=== PATIENT | male | born 1960 | race Caucasian/White ===

== ENCOUNTER 2017-04-02 09:09 | Emergency (ER) | payer BC, OTHER ==
[2017-04-02 09:51] VITALS: BP 135/91
--- NOTE | 2017-04-02 10:01 | EDM.PDOC ---
ED HPI GENERAL MEDICAL PROBLEM - General Chief Complaint: Lower Extremity Injury/Pain Stated Complaint: [id number] PULLED CALF MUSCLE AT WORK Time Seen by Provider: 04/02/17 09:59 Source of Information: Reports: Patient, RN Notes Reviewed - History of Present Illness INITIAL COMMENTS - FREE TEXT/NARRATIVE: PATIENT FELL forward at work over a box of tomatoes and felt a pull in his right calf. He was able to get up and walk. States it is a ripping pain. Worse with ambulation and better if sitting. denies striking his head or LOC Onset: Today Severity: Mild Right Posterior Leg Pain Score (Numeric/FACES): 8 - Related Data Allergies Allergy/AdvReac Type Severity Reaction Status Date / Time No Known Allergies Allergy Verified 04/02/17 09:35 Home Meds: Home Meds . [No Known Home Meds] 04/02/17 [History] Social & Family History - Tobacco Use Smoking Status *Q: Never Smoker Second Hand Smoke Exposure: No - Alcohol Use Days Per Week of Alcohol Use: 0 - Recreational Drug Use Recreational Drug Use: No Review of Systems - Review of Systems Review Of Systems: ROS reveals no pertinent complaints other than HPI. Trauma Exam - Physical Exam Exam: See Below Exam Limited By: No Limitations General Appearance: Reports: Alert, WD/WN, No Apparent Distress Head: Reports: Atraumatic, Normocephalic Eyes: Bilateral Eye: PERRL Neck: Reports: Non-Tender, Full Range of Motion, Normal Alignment, Normal Inspection Respiratory Exam: Reports: No Respiratory Distress, Lungs Clear, Normal Breath Sounds Cardiovascular: Reports: Normal Peripheral Pulses, Regular Rate, Rhythm, No Edema, No Gallop, No JVD, No Murmur, No Rub Back: Reports: Full Range of Motion, Normal Inspection, Non-Tender Extremities: No Evidence of Injury, Normal Range of Motion, No Pedal Edema, Tenderness, Other (tenderness to the left calf without obvious deformity- postive De La Cruz's test. no pain in the knee knee has full ROM-good distal pulses and normal Distally NVS intact. ) Skin: Reports: Normal Color, Warm/Dry - Matt Coma Score Best Eye Response (Matt): (4) Open Spontaneously Best Verbal Response (Matt): (5) Oriented Best Motor Response ([place]): (6) Obeys Commands Matt Total: 15 Course - Vital Signs Last Recorded V/S: Last Vital Signs Temp 98.6 F 05/29/17 09:30 Pulse 85 04/02/17 09:30 Resp 18 04/02/17 09:30 BP 135/91 H 04/02/17 09:30 Pulse Ox 99 04/02/17 09:30 Departure - Departure Time of Disposition: 10:00 Disposition: Home, Self-Care 01 Condition: good Clinical Impression: Muscle strain of right lower leg Qualifiers: Encounter type: initial encounter Qualified Code(s): S86.911A - Strain of unspecified muscle(s) and tendon(s) at lower leg level, right leg, initial encounter - Discharge Information Instructions: Muscle Strain, [id number] Forms: ED Department Discharge Additional Instructions: Wear ERWIN till pain free Use Motrin 800mg (4 over the counter) today and get RX filled tomorrow. Ice for 3 days then heat See PCP if still painful in 1 week.
== END 2017-04-02 10:48 | disposition home or self-care (01) ==
LOC: DL.ED 09:09
DX: S86.911A Strain of unspecified muscle(s) and tendon(s) at lower leg level, right leg, initial encounter (principal); W19.XXXA Unspecified fall, initial encounter; Y93.89 Activity, other specified; Y99.0 Civilian activity done for income or pay
CPT/HCPCS: 99283

== ENCOUNTER 2023-02-06 10:09 | Emergency (ER) | payer BC ==
[2023-02-06 10:25] VITALS: BP 126/91; PULSE 80
[2023-02-06 11:19] LABS: ANION GAP 11.9 mEq/L (7-13)
== END 2023-02-06 12:09 | disposition home or self-care (01) ==
LOC: DL.ED 10:09
DX: R07.89 Other chest pain (principal)
CPT/HCPCS: 36415; 71046; 80053; 83880; 84484; 85025; 85379; 93005; 93010; 99284